=== PATIENT | female | born 1990 | race Caucasian/White ===

== ENCOUNTER 2017-03-08 11:41 | Emergency (ER) | payer MEDICAID, OTHER ==
--- NOTE | 2017-03-08 11:46 | EDM.PDOC ---
ED HPI GENERAL MEDICAL PROBLEM - General Chief Complaint: Skin Complaint Stated Complaint: WOUND INFECTION Time Seen by Provider: 03/08/17 11:45 Source of Information: Reports: Patient - History of Present Illness INITIAL COMMENTS - FREE TEXT/NARRATIVE: HISTORY AND PHYSICAL: History of present illness: []Patient has developed 2 abscesses approximately an inch and a quarter in diameter on both lesions one is over her right clavicle has been open and draining spontaneously, she has a second lesion in her right axilla Both lesions are warm and tender with lung fluctuance, again the first lesion over the clavicle is draining purulent exudate on its own, the lesion in the axilla will require I&D No fever nausea vomiting chills sweats Review of systems: As per history of present illness and below otherwise all systems reviewed and negative. Past medical history: As per history of present illness and as reviewed below otherwise noncontributory. Surgical history: As per history of present illness and as reviewed below otherwise noncontributory. Social history: No reported history of drug or alcohol abuse. Family history: As per history of present illness and as reviewed below otherwise noncontributory. Physical exam: HEENT: Atraumatic, normocephalic, pupils reactive, negative for conjunctival pallor or scleral icterus, mucous membranes moist, throat clear, neck supple, nontender, trachea midline. Lungs: Clear to auscultation, breath sounds equal bilaterally, chest nontender. Heart: S1S2, regular, negative for clicks, rubs, or JVD. Abdomen: Soft, nondistended, nontender. Negative for masses or hepatosplenomegaly. Negative for costovertebral tenderness. Pelvis: Stable nontender. Genitourinary: Deferred. Rectal: Deferred. Extremities: Atraumatic, negative for cords or calf pain. Neurovascular unremarkable. Neuro: Awake, alert, oriented. Cranial nerves II through XII unremarkable. Cerebellum unremarkable. Motor and sensory unremarkable throughout. Exam nonfocal. Diagnostics: []1 culture #1 right clavicular abscess #2 culture right axilla Therapeutics: []Rocephin 1 g IM Bactrim double strength by mouth twice a day #20 no refill I&D performed packed with half-inch iodoform each lesion Follow-up in clinic Monday for wound care and repacking Tetanus status is updated Lidocaine with epi Standard wound care Impression: []Multiple abscess with I&D Definitive disposition and diagnosis as appropriate pending reevaluation and review of above. Right Arm Pain Score (Numeric/FACES): 8 - Related Data Allergies Allergy/AdvReac Type Severity Reaction Status Date / Time No Known Allergies Allergy Verified 06/28/15 16:39 Home Meds: Home Meds . [No Known Home Meds] 03/08/17 [History] Past Medical History Other Neuro History: scoliosis Social & Family History - Tobacco Use Smoking Status *Q: Never Smoker - Recreational Drug Use Recreational Drug Use: No ED ROS GENERAL - Review of Systems Review Of Systems: ROS reveals no pertinent complaints other than HPI. ED EXAM, SKIN/RASH Exam: See Below Course - Vital Signs Last Recorded V/S: Last Vital Signs Temp 37.1 C 03/08/17 11:54 Pulse 99 03/08/17 11:54 Resp 18 03/08/17 11:54 BP 145/85 H 03/08/17 11:54 Pulse Ox 0 L 03/08/17 11:54 - Orders/Labs/Meds Orders: Active Orders 24 hr Category Date Time Status Vaccines to be Administered [RC] PER UNIT ROUTINE Care 03/08/17 12:48 Active Meds: Medications Discontinued Medications Generic Name Dose Route Start Last Admin Trade Name Freq PRN Reason Stop Dose Admin Diphtheria/Tetanus/Acell Pertussis 0.5 ml 03/08/17 12:48 03/08/17 12:59 Adacel IM 03/08/17 12:49 0.5 ml .ONCE ONE Administration Ceftriaxone Sodium 1,000 mg/ 4 mls @ 4 mls/sec 03/08/17 12:12 03/08/17 12:55 Lidocaine HCl IM 03/08/17 12:13 4 mls/sec ONETIME ONE Administration Lidocaine/Epinephrine 20 ml 03/08/17 12:11 Xylocaine 1% With Epinephrine 1:100,000 INJECT 03/08/17 12:12 ONETIME ONE Departure - Departure Time of Disposition: 13:08 Disposition: Home, Self-Care 01 Condition: Good Clinical Impression: Abscess - Discharge Information Forms: ED Department Discharge Additional Instructions: Medication as prescribed Return if fever nausea vomiting chills sweats or expanding lesions despite antibiotics Follow-up in clinic on Monday for continued management dressing change as well as repacking GI referral for clinic on Monday If you're unable to gain an appointment in the clinic please follow-up in ER to recheck the wounds [facility] - Primary [facility] [address] [place] [id number] The following information is given to patients seen in the emergency department who are being discharged to home. This information is to outline your options for follow-up care. We provide all patients seen in our emergency department with a follow-up referral. The need for follow-up, as well as the timing and circumstances, are variable depending upon the specifics of your emergency department visit. If you don't have a primary care physician on staff, we will provide you with a referral. We always advise you to contact your personal physician following an emergency department visit to inform them of the circumstance of the visit and for follow-up with them and/or the need for any referrals to a consulting specialist. The emergency department will also refer you to a specialist when appropriate. This referral assures that you have the opportunity for follow-up care with a specialist. All of these measure are taken in an effort to provide you with optimal care, which includes your follow-up. Under all circumstances we always encourage you to contact your private physician who remains a resource for coordinating your care. When calling for follow-up care, please make the office aware that this follow-up is from your recent emergency room visit. If for any reason you are refused follow-up, please contact the [facility] emergency department at and asked to speak to the emergency department charge nurse. - My Orders Last 24 Hours: My Active Orders 03/08/17 12:48 Vaccines to be Administered [RC] PER UNIT ROUTINE - Assessment/Plan Last 24 Hours: My Active Orders 03/08/17 12:48 Vaccines to be Administered [RC] PER UNIT ROUTINE
[2017-03-08] MEDS ORDERED: Lidocaine 1% with EPINEPHrine 1:100,000 20 ML MDV INJECT ONE (12:11)
[2017-03-08] MEDS ORDERED: cefTRIAXone 1,000 MG in Lidocaine 1% 4 ML IM ONE (12:12)
[2017-03-08] MEDS ORDERED: Diphtheria,Pertussis(Acell),Tetanus Vaccine 0.5 ML Syringe IM ONE (12:48)
[2017-03-08 13:42] VITALS: BP 134/86
== END 2017-03-08 13:35 | disposition home or self-care (01) ==
LOC: MW.ED 11:41
DX: L02.413 Cutaneous abscess of right upper limb (principal); L02.411 Cutaneous abscess of right axilla; Z23 Encounter for immunization
CPT/HCPCS: 10061; 87070; 90471; 90715; 96372; 99283; J0696; 87077; 87186

== ENCOUNTER 2017-03-11 21:38 | Emergency (ER) | payer SELFPAY ==
--- NOTE | 2017-03-11 22:03 | EDM.PDOC ---
ED HPI GENERAL MEDICAL PROBLEM - General Chief Complaint: General Stated Complaint: REMOVE FROM RIGHT ARMPIT Time Seen by Provider: 03/11/17 21:55 - History of Present Illness INITIAL COMMENTS - FREE TEXT/NARRATIVE: HISTORY AND PHYSICAL: History of present illness: The patient is a healthy 26-year-old female who was here in the emergency department on March 08 with an axillary abscess that was I indeed and cultures were sent and the patient was placed on Bactrim. The patient was most a follow- up yesterday in the clinic to have the pack removed and she says that the pack came out on its own but she was concerned that there might be some packing still present in the wound. She has been compliant with her antibiotic and I checked the wound culture which reveals sensitivity to Bactrim for the MRSA that was found in the wound. I have informed the patient of the wound culture results and that the antibiotic is good to cover that. She says that overall it is feeling better and is more hardened and less painful. She has had no systemic complaints and no drainage. Review of systems: As per history of present illness and below otherwise all systems reviewed and negative. Past medical history: As per history of present illness and as reviewed below otherwise noncontributory. Surgical history: As per history of present illness and as reviewed below otherwise noncontributory. Social history: No reported history of drug or alcohol abuse. Family history: As per history of present illness and as reviewed below otherwise noncontributory. Physical exam: Gen.: Well-developed well-nourished female is nontoxic and vital signs been reviewed by me HEENT: Atraumatic, normocephalic, negative for conjunctival pallor or scleral icterus, mucous membranes moist, throat clear, neck supple, nontender, trachea midline. Lungs: Clear to auscultation, breath sounds equal bilaterally, chest nontender. Heart: S1S2, regular rate and rhythm no overt murmurs Abdomen: Deferred Pelvis: Deferred Genitourinary: Deferred. Rectal: Deferred. Extremities: Atraumatic, full range of motion without any defects or deficits. At the right axilla there is a very tiny scab-like areas seen which is well- healed and there is no fluctuance erythema warmth in the surround. There is a [place] size area of induration but this is not tender or fluctuant. The patient has full range of motion of the right upper extremity and there is no evidence of any packing present either visually or by palpation. The legs are negative for cords or calf pain. Neurovascular unremarkable. Neuro: Awake, alert, oriented. Cranial nerves II through XII unremarkable. Cerebellum unremarkable. Motor and sensory unremarkable throughout. Exam nonfocal. Diagnostics: [] Therapeutics: [] Impression: Encounter for wound recheck status post I&D of axillary abscess Definitive disposition and diagnosis as appropriate pending reevaluation and review of above. - Related Data Allergies Allergy/AdvReac Type Severity Reaction Status Date / Time No Known Allergies Allergy Verified 03/11/17 21:46 Home Meds: Home Meds . [No Known Home Meds] 03/08/17 [History] Past Medical History HEENT History: Reports: None Cardiovascular History: Reports: None Respiratory History: Reports: None Gastrointestinal History: Reports: None Genitourinary History: Reports: None [employer] History: Reports: None Musculoskeletal History: Reports: None Neurological History: Reports: Other (See Below) Other Neuro History: scoliosis Psychiatric History: Reports: None Endocrine/Metabolic History: Reports: None Hematologic History: Reports: None Immunologic History: Reports: None Oncologic (Cancer) History: Reports: None Dermatologic History: Reports: Cellulitis - Infectious Disease History Infectious Disease History: Reports: Chicken Pox - Past Surgical History Head Surgeries/Procedures: Reports: None HEENT Surgical History: Reports: Tonsillectomy Cardiovascular Surgical History: Reports: None Respiratory Surgical History: Reports: None GI Surgical History: Reports: None Female Surgical History: Reports: None Endocrine Surgical History: Reports: None Neurological Surgical History: Reports: None Musculoskeletal Surgical History: Reports: None Social & Family History - Tobacco Use Smoking Status *Q: Never Smoker Second Hand Smoke Exposure: No - Caffeine Use Caffeine Use: Reports: None - Recreational Drug Use Recreational Drug Use: No ED ROS GENERAL - Review of Systems Review Of Systems: ROS reveals no pertinent complaints other than HPI. ED EXAM, GENERAL - Physical Exam Exam: See Below (See dictation) Course - Vital Signs Last Recorded V/S: Last Vital Signs Temp 36.4 C 03/11/17 21:46 Pulse 89 03/11/17 21:46 Resp 17 03/11/17 21:46 BP 138/83 03/11/17 21:46 Pulse Ox 97 03/11/17 21:46 Departure - Departure Time of Disposition: 22:02 Disposition: Home, Self-Care 01 Condition: Good Clinical Impression: Wound check, abscess - Discharge Information Forms: ED Department Discharge Additional Instructions: The following information is given to patients seen in the emergency department who are being discharged to home. This information is to outline your options for follow-up care. We provide all patients seen in our emergency department with a follow-up referral. The need for follow-up, as well as the timing and circumstances, are variable depending upon the specifics of your emergency department visit. If you don't have a primary care physician on staff, we will provide you with a referral. We always advise you to contact your personal physician following an emergency department visit to inform them of the circumstance of the visit and for follow-up with them and/or the need for any referrals to a consulting specialist. The emergency department will also refer you to a specialist when appropriate. This referral assures that you have the opportunity for followup care with a specialist. All of these measure are taken in an effort to provide you with optimal care, which includes your followup. Under all circumstances we always encourage you to contact your private physician who remains a resource for coordinating your care. When calling for followup care, please make the office aware that this follow-up is from your recent emergency room visit. If for any reason you are refused follow-up, please contact the [facility] emergency department at and ask to speak to the emergency department charge nurse. [facility] Primary care- [place] [phone] Please continue and finish the antibiotics he your given on March 08, Bactrim. Use [id number] medications for pain and call and follow-up in the clinic. Return as needed and as discussed.
== END 2017-03-11 22:11 | disposition home or self-care (01) ==
LOC: MW.ED 21:38
CPT/HCPCS: 99282; 99283